=== PATIENT | male | born 1960 | race Hispanic/Latino ===

== ENCOUNTER 2020-04-23 10:29 | Emergency (ER) | payer MEDICARE ==
[~2020-04-23 10:29] MED LIST: LORA1TAB3 PO; PARO30TA60 PO
== END 2020-04-23 11:12 | disposition home or self-care (01) ==
LOC: EDH 10:29
DX: B34.9 Viral infection, unspecified (principal); Z20.828 Contact with and (suspected) exposure to other viral communicable diseases
CPT/HCPCS: 99283; U0003

== ENCOUNTER 2021-05-12 07:31 | Emergency (ER) | payer MEDICARE ==
[~2021-05-12] VITALS: Ht 180.3 cm; Wt 79.8 kg
[2021-05-12 07:55] LABS: BASOPHILS % (AUTO) 0.5 % (0.0-5.0); EOSINOPHILS % (AUTO) 0.7 % (0.0-8.0); HEMATOCRIT 44.5 % (42-54); LYMPHOCYTES % (AUTO) 35.1 % (21.0-51.0); MEAN CORPUSCULAR HEMOGLOBIN 31.5 pg (27.0-33.0); MEAN CORPUSCULAR HGB CONC 33.7 g/dL (32.0-36.0); MEAN CORPUSCULAR VOLUME 93.5 fL (79-99); MONOCYTES % (AUTO) 5.9 % (3.0-13.0); NEUTROPHILS % (AUTO) 57.6 % (40.0-77.0); PLATELET COUNT (AUTO) 162 K/uL (130-400); RED BLOOD CELL COUNT(AUTO) 4.76 MIL/uL (4.50-6.20); RED CELL DISTRIBUTION WIDTH 12.6 % (11.0-15.5); WHITE BLOOD COUNT (AUTO) 4.1 K/uL (4.8-10.8)
[2021-05-12 08:03] VITALS: BP 163/92
[2021-05-12 08:27] LABS: APPEARANCE,URINE Clear (CLEAR); BILIRUBIN,URINE Negative (NEGATIVE); COLOR,URINE Yellow (YELLOW); GLUCOSE, URINE (UA) Negative (NEGATIVE); KETONES,URINE Negative (NEGATIVE); LEUKOCYTE ESTERASE ,URINE Negative (NEGATIVE); NITRATE,URINE Negative (NEGATIVE); OCCULT BLOOD,URINE Negative (NEGATIVE); PROTEIN,URINE Negative (NEGATIVE); UROBILINOGEN,URINE 0.2 mg/dL (0.2-1.0)
[2021-05-12] MEDS ORDERED: FAMOTIDINE 20MG VIAL IV SCH (08:30)
[2021-05-12] MEDS ORDERED: ONDANSETRON 4MG INJ IVP SCH (08:30)
[2021-05-12] MEDS ORDERED: KETOROLAC 30MG VIAL (30MG/ML) IV SCH (08:30)
[2021-05-12 08:46] LABS: ALBUMIN 4.2 g/dL (3.5-5.0); BILIRUBIN,TOTAL 0.6 mg/dL (0.2-1.0); CREATININE 1.1 mg/dL (0.5-1.5); POTASSIUM 3.9 mmol/L (3.5-5.1); TOTAL PROTEIN, SERUM 7.8 g/dL (6.0-8.3)
[2021-05-12] MEDS ORDERED: MAGN296S76 PO (11:01)
[2021-05-12] MEDS ORDERED: ONDA22I PO (11:01)
[2021-05-12] MEDS ORDERED: FAMO-136 PO (11:01)
== END 2021-05-12 11:25 | disposition home or self-care (01) ==
LOC: EDH 07:31
DX: K59.00 Constipation, unspecified (principal); R10.11 Right upper quadrant pain; R11.0 Nausea; F32.9 Major depressive disorder, single episode, unspecified; Z20.822 Contact with and (suspected) exposure to COVID-19
CPT/HCPCS: 36415; 71045; 76705; 80053; 81003; 82150; 83690; 85025; 87635; 93005; 96374; 96375; 99285; C9803; J1885; J2405; J3490

== ENCOUNTER 2023-12-02 04:01 | Emergency (ER) | payer MEDICARE ==
[~2023-12-02] VITALS: Ht 182.9 cm; Wt 76.2 kg
[~2023-12-02 04:01] MED LIST changes: +FAMO-136 PO; +MAGN296S73 PO; +ONDA22I PO
[2023-12-02] MEDS: FAMOTIDINE 20MG VIAL IV ONE (04:32)
[2023-12-02] MEDS: ONDANSETRON 4MG INJ IVP ONE (04:32)
[2023-12-02] MEDS: 0.9%NACL 1000ML 1,000 ML IV ONE (04:33)
[2023-12-02] MEDS: KETOROLAC 15MG/ML VIAL (15MG/ML) IV ONE (04:33)
[2023-12-02 04:41] LABS: BASOPHILS # (AUTO) 0.02 K/uL (0.00-0.20); BASOPHILS % (AUTO) 0.4 % (0.0-5.0); EOSINOPHILS # (AUTO) 0.04 K/uL (0.00-0.70); EOSINOPHILS % (AUTO) 0.9 % (0.0-8.0); HEMATOCRIT 43.2 % (42-54); IMMATURE GRANULOCYTE ABSOLUTE 0.01 K/uL (0-1); LYMPHOCYTES # (AUTO) 1.3 K/uL (1.0-4.8); LYMPHOCYTES % (AUTO) 28.2 % (21.0-51.0); MEAN CORPUSCULAR HEMOGLOBIN 31.7 pg (27.0-33.0); MEAN CORPUSCULAR HGB CONC 34.3 g/dL (32.0-36.0); MEAN CORPUSCULAR VOLUME 92.5 fL (79-99); MONOCYTES # (AUTO) 0.4 K/uL (0.1-1.0); MONOCYTES % (AUTO) 7.8 % (3.0-13.0); NEUTROPHILS # (AUTO) 2.8 K/uL (1.8-7.7); NEUTROPHILS % (AUTO) 62.5 % (40.0-77.0); PLATELET COUNT (AUTO) 187 K/uL (130-400); RED BLOOD CELL COUNT(AUTO) 4.67 MIL/uL (4.50-6.20); RED CELL DISTRIBUTION WIDTH 12.3 % (11.0-15.5); WHITE BLOOD COUNT (AUTO) 4.5 K/uL (4.8-10.8)
[2023-12-02 04:52] LABS: CREATININE 1.1 mg/dL (0.5-1.3); POTASSIUM 3.8 mmol/L (3.5-5.1)
[2023-12-02 04:56] LABS: ALBUMIN 3.9 g/dL (3.5-5.0); BILIRUBIN,TOTAL 0.5 mg/dL (0.2-1.0); TOTAL PROTEIN, SERUM 7.2 g/dL (6.0-8.3)
[2023-12-02] MEDS ORDERED: FAMO-136 PO (05:53)
[2023-12-02] MEDS ORDERED: ONDA4TAB10 SL (05:53)
[2023-12-02 06:01] VITALS: BP 116/73; PULSE 57; RESP 18; O2SAT 100
== END 2023-12-02 06:19 | disposition home or self-care (01) ==
LOC: EDH 04:01
DX: T62.2X4A Toxic effect of other ingested (parts of) plant(s), undetermined, initial encounter (principal); Z79.899 Other long term (current) drug therapy; Z98.890 Other specified postprocedural states; Y92.89 Other specified places as the place of occurrence of the external cause
CPT/HCPCS: 99285; 96374; 76705; 96375; 84484 ×2; 80053; 83690; 85025; 36415; J3490; J7030; J2405; J1885